=== PATIENT | male | born 1940 | race Hispanic/Latino ===

== ENCOUNTER 2020-12-12 14:25 | Outpatient (CLI) | payer MEDICARE, BC | END 2020-12-12 14:26 | disposition home or self-care (01) | LOC: BICCT 14:25 | PROVIDERS: ATTEND Family Medicine | DX: E78.00 Pure hypercholesterolemia, unspecified (principal) | CPT/HCPCS: 75571 ==

== ENCOUNTER 2024-04-30 13:06 | Observation (INO) | payer MEDICARE, BC ==
[2024-04-30 14:30] LABS: #Basophils 0.04 10x3/uL (0.0-0.2); %Basophils 0.4 % (0.0-1.0); %Lymphocytes 13.2 % (21.0-51.0); %Monocytes 6.1 % (0.0-10.0); %Neutrophils 75.6 % (42.0-75.0); Hematocrit 47.2 % (42.0-52.0); Hemoglobin 15.6 g/dL (14.0-18.0); Mean Corpuscular HGB CONC 33.1 g/dL (32.0-36.0); Mean Corpuscular Hemoglobin 30.2 pg (27.0-31.0); Mean Corpuscular Volume 91.5 fL (78.0-98.0); Mean Platelet Volume 9.5 fL (7.4-10.4); Platelet Count 228 10x3/uL (130-400); RBC Distribution Width 14.1 % (11.5-14.5); Red Blood Cell (RBC) Count 5.16 mill/uL (4.70-6.10)
[2024-04-30 14:48] LABS: INR-International Normal Ratio 1.1; Prothrombin Time 13.8 sec (12.0-14.7)
[2024-04-30 14:49] LABS: PTT 32.7 sec (22.9-36.1)
[2024-04-30 14:50] LABS: Magnesium 2.3 mg/dL (1.6-2.6)
[2024-04-30 14:51] LABS: Acetaminophen Less than 10 mcg/mL (10.0-30.0); Alcohol Less than 10.0 mg/dL (Less than 10); Salicylate Less than 8.0 mg/dL (15.0-30.0)
[2024-04-30 14:53] LABS: ALT (SGPT) 26 U/L (8-55); AST (SGOT) 28 U/L (5-34); Albumin 3.6 g/dL (3.4-4.8); Alkaline Phosphatase 82 U/L (40-110); Anion Gap 15 mmol/L (10-20); BUN (Urea Nitrogen) 37 mg/dL (8.4-25.7); Bilirubin, Total 0.9 mg/dL (0.2-1.2); Calc. Creatinine Clearance 0 mL/min (70-130); Calcium 9.3 mg/dL (7.8-10.44); Carbon Dioxide 26 mmol/L (23-31); Chloride 105 mmol/L (98-107); Estimated GFR 56; Globulin 2.9 g/dL (2.4-3.5); Glucose 74 mg/dL (83-110); Potassium 4.5 mmol/L (3.5-5.1); Protein, Total 6.5 g/dL (5.8-8.1); Sodium 141 mmol/L (136-145)
[2024-04-30] MEDS ORDERED: Lidocaine 1% w/Epinephrine 1:100K 20 ML VIAL ONE (15:28)
[2024-04-30] MEDS ORDERED: Dextrose 5% in Water 1,000 ML IV PRN (16:50)
[2024-04-30] MEDS ORDERED: Glucagon 1 MG/ML KIT IM PRN (16:50)
[2024-04-30] MEDS ORDERED: Dextrose 50% Abboject 50 ML SYRINGE SLOW IVP PRN (16:50)
[2024-04-30] MEDS ORDERED: Ondansetron ODT 4 MG TAB PO PRN (16:50)
[2024-04-30] MEDS ORDERED: hydrALAZINE 20 MG/ML VIAL SLOW IVP PRN (16:50)
[2024-04-30 17:07] LABS: Bacteria/HPF None Seen HPF (None Seen); Bilirubin Negative (Negative); Blood, Urine Negative (Negative); CAUTI Indications for Culture < 2yrs of age; Clarity Clear (Clear); Glucose, Urine (Dipstick) Normal (Negative); Ketone, Urine Negative (Negative); Leukocyte 75 Leu/uL (Negative); Nitrite Negative (Negative); Protein, Urine (Dipstick) 50 mg/dL (Neg-Trace); RBC/HPF 0-3 HPF (0-3); Specific Gravity, Urine 1.017 (1.002-1.036); Squamous Epithelial 0-3 HPF (0-3); Urobilinogen Normal mg/dL (Less than 2); pH, Urine 6.5 (5.0-9.0)
[2024-04-30 17:09] LABS: Urine Culture Reflex Yes Yes
[2024-04-30 17:13] LABS: Amphetamine Not Detected (NotDetected); Barbiturates Screen Not Detected (NotDetected); Benzodiazepine Screen Not Detected (NotDetected); Cocaine Metabolite Screen Not Detected (NotDetected); Methadone Not Detected (NotDetected); Methamphetamine Not Detected (NotDetected); Opiate Screen Not Detected (NotDetected); Oxycodone Screen Not Detected (NotDetected); Phencyclidine (PCP) Not Detected (NotDetected); THC/Cannabinoid Screen Not Detected (NotDetected); Tricyclic Screen Not Detected (NotDetected)
[2024-04-30] MEDS ORDERED: Apixaban 5 MG TAB ONE (17:47)
[2024-04-30] MEDS ORDERED: Acetaminophen 325 MG TAB ONE (17:47)
[2024-04-30] MEDS: Apixaban 2.5 MG TAB PO SCH (17:54)
[2024-04-30] MEDS: Acetaminophen 325 MG TAB PO SCH (17:54)
[2024-04-30 18:24] LABS: Troponin I 0.032 ng/mL (< 0.028)
[2024-04-30] MEDS ORDERED: Sacubitril 49 MG/Valsartan 51 MG TABLET ONE (20:16)
[2024-04-30] MEDS: Sacubitril 49 MG/Valsartan 51 MG TABLET PO SCH (20:20)
[2024-04-30 21:43] LABS: Troponin I 0.036 ng/mL (< 0.028)
[2024-04-30] MEDS: Insulin Lispro 100 UNIT/ML 10 ML VIAL SC PRN (23:08)
[2024-05-01 03:47] LABS: #Basophils 0.04 10x3/uL (0.0-0.2); %Basophils 0.4 % (0.0-1.0); %Eosinophils 4.4 % (0.0-10.0); %Lymphocytes 35.9 % (21.0-51.0); %Monocytes 9.9 % (0.0-10.0); %Neutrophils 48.9 % (42.0-75.0); Hematocrit 46.2 % (42.0-52.0); Hemoglobin 15.6 g/dL (14.0-18.0); Mean Corpuscular HGB CONC 33.8 g/dL (32.0-36.0); Mean Corpuscular Hemoglobin 30.2 pg (27.0-31.0); Mean Corpuscular Volume 89.4 fL (78.0-98.0); Mean Platelet Volume 9.5 fL (7.4-10.4); Platelet Count 258 10x3/uL (130-400); RBC Distribution Width 13.9 % (11.5-14.5); Red Blood Cell (RBC) Count 5.17 mill/uL (4.70-6.10)
[2024-05-01 04:09] LABS: Anion Gap 15 mmol/L (10-20); BUN (Urea Nitrogen) 34 mg/dL (8.4-25.7); Calc. Creatinine Clearance 42 mL/min (70-130); Calcium 9.2 mg/dL (7.8-10.44); Carbon Dioxide 26 mmol/L (23-31); Chloride 105 mmol/L (98-107); Estimated GFR 58; Glucose 43 mg/dL (83-110); Potassium 3.8 mmol/L (3.5-5.1); Sodium 142 mmol/L (136-145)
[2024-05-01 15:30] VITALS: BP 107/70; TEMP 98.5
== END 2024-05-01 17:40 | disposition home or self-care (01) ==
LOC: ERS 13:06 → ERHOLD 16:24 → 2SW 20:52
PROVIDERS: ADMIT Internal Medicine; ATTEND Internal Medicine
PROC: B246ZZZ Ultrasonography of Right and Left Heart (ICD-10-PCS; principal; 2024-04-30)
DX: N18.32 Chronic kidney disease, stage 3b (principal); E11.22 Type 2 diabetes mellitus with diabetic chronic kidney disease; E78.5 Hyperlipidemia, unspecified; I42.8 Other cardiomyopathies; E11.65 Type 2 diabetes mellitus with hyperglycemia; I73.9 Peripheral vascular disease, unspecified; Z79.4 Long term (current) use of insulin; Z79.01 Long term (current) use of anticoagulants; Z86.718 Personal history of other venous thrombosis and embolism; W19.XXXA Unspecified fall, initial encounter; Z88.2 Allergy status to sulfonamides; Z95.810 Presence of automatic (implantable) cardiac defibrillator; R55 Syncope and collapse
CPT/HCPCS: 12011; 70450; 70486; 71045; 72125; 80048; 80306; 80307; 81001; 82962 ×2; 83735; 83880; 84484 ×2; 85025; 85610; 85730; 87086; 93005; 93306; 93880; 97116; 97535; 99285; G0378 ×3; J1815; 36415; 36416; 80053; 84443